=== PATIENT | male | born 1985 | race Caucasian/White ===

== ENCOUNTER 2020-10-19 17:29 | Emergency (ER) | payer MEDICAID ==
[~2020-10-19] VITALS: Ht 177.8 cm; Wt 79.5 kg
[2020-10-19 18:31] VITALS: BP 136/81
== END 2020-10-19 19:19 | disposition home or self-care (01) ==
LOC: ER 17:30
DX: R53.83 Other fatigue (principal); Z20.822 Contact with and (suspected) exposure to COVID-19; R52 Pain, unspecified
CPT/HCPCS: 87635; 99283; C9803

== ENCOUNTER 2022-04-07 14:25 | Emergency (ER) | payer MEDICAID ==
[~2022-04-07] VITALS: Ht 177.8 cm; Wt 81.8 kg
[2022-04-07 14:59] VITALS: BP 138/82
[2022-04-07] MEDS ORDERED: triamcinolone acetonide 40mg/ml inj IM ONE (15:15)
[2022-04-07] MEDS ORDERED: TRIA15CR61 TOP (15:22)
[2022-04-07] MEDS ORDERED: PRED20TA PO (15:22)
== END 2022-04-07 15:45 | disposition home or self-care (01) ==
LOC: ER 14:26
DX: L23.7 Allergic contact dermatitis due to plants, except food (principal); Z79.899 Other long term (current) drug therapy
CPT/HCPCS: 96372; 99283; J3301

== ENCOUNTER 2022-04-29 09:54 | Emergency (ER) | payer MEDICAID ==
[~2022-04-29] VITALS: Ht 177.8 cm; Wt 79.5 kg
[~2022-04-29 09:54] MED LIST: TRIA15CR61 TOP
[2022-04-29 10:33] VITALS: BP 142/98
== END 2022-04-29 12:24 | disposition home or self-care (01) ==
LOC: ER 09:55
DX: R05.9 Cough, unspecified (principal); Z20.822 Contact with and (suspected) exposure to COVID-19; F15.10 Other stimulant abuse, uncomplicated; F11.10 Opioid abuse, uncomplicated
CPT/HCPCS: 87811; 99283

== ENCOUNTER 2023-01-26 20:43 | Emergency (ER) | payer MEDICAID ==
[~2023-01-26] VITALS: Ht 177.8 cm; Wt 68.9 kg
[2023-01-26 23:03] VITALS: BP 123/70; PULSE 62; RESP 16; TEMP 97.8; O2SAT 99
== END 2023-01-26 23:04 | disposition home or self-care (01) ==
LOC: ER 20:43
DX: S93.601A Unspecified sprain of right foot, initial encounter (principal); Z72.89 Other problems related to lifestyle; X50.1XXA Overexertion from prolonged static or awkward postures, initial encounter; Y93.89 Activity, other specified; Y92.89 Other specified places as the place of occurrence of the external cause; Y99.8 Other external cause status
CPT/HCPCS: 73610; 73630; 99284; L4360

== ENCOUNTER 2025-02-03 18:16 | Emergency (ER) | payer MEDICAID ==
[~2025-02-03] VITALS: Ht 177.8 cm; Wt 65.6 kg
--- NOTE | 2025-02-03 19:10 | RADIOLOGY REPORT ---
EXAM: DI CHEST,SINGLE VIEW HISTORY: CP TECHNIQUE: 1 view of the chest COMPARISON: None FINDINGS/IMPRESSION: LUNGS: Bibasilar hazy alveolar opacity/infiltrates. MEDIASTINUM: Unremarkable. BONES: No acute osseous abnormality. OTHER: None.
--- NOTE | 2025-02-03 19:32 | Physician Documentation ---
History of Present Illness ~ Chief Complaint: Cough Stated Complaint: FLU SYMPTOMS Time Seen by MD: 19:33 Primary Medical Doctor: NONE HPI This is a 39-year-old male who presents with one-month of productive cough, patient reports bilateral rib pain worse with coughing. Mild complain of malaise and goodwin color to sputum production. No hemoptysis, night sweats or unintentional weight loss. Medication Reconciliation Allergies: Coded Allergies: No Known Allergies (Unverified , 04/07/22) Scheduled Albuterol Sulfate (Ventolin Hfa), 2 PUFFS INH Q4HPRN Azithromycin (Zithromax), 1 TAB PO DAILY Scheduled PRN Benzonatate* (Benzonatate*), 1-2 CAP PO Q6H PRN for cough Past Medical History Past Medical History: No Pertinent History Past Surgical History: no surgical history Alcohol Use: Heavy Lives with: S/O Lives In: Home Review of Systems ROS As stated above in the HPI, otherwise all systems are reviewed and negative. Physical Exam Vital Signs: Temperature: 98.9, Source: Temporal, Heart Rate: 77, Respiratory Rate: 16, BP: 125/72, Pulse Oximetry: 99, Weight: 65.600 Oxygen Flow Rate: 0 Physical Exam VITALS: Reviewed and as above. GENERAL: Alert, nontoxic appearing, no apparent distress. HEENT: RESPIRATORY: No increased work of breathing, no respiratory distress, speaking in full clear sentences CHEST: CV: BACK: GI: MUSCULOSKELETAL: SKIN: NEURO: PSYCH: Progress Results/Orders Results/Orders Completed Orders - ALCIRA ALMODOVAR Azithromycin Tablet (Zithromax Tablet) (02/03/25 19:45) Benzonatate Capsule (Tessalon Perles Cap (02/03/25 19:45) Vital Signs 02/03/25 02/03/25 18:38 20:05 Temp 98.9 98.9 Pulse 77 76 Resp 16 20 B/P (MAP) 125/72 126/70 Pulse Ox 99 99 O2 Flow Rate 0 Medical Decision Making Additional information obtaine: N/A Findings MSE performed in triage and patient returned to ED lobby by nursing staff to await available ED room. Examination history consistent with atypical versus viral pneumonia. Chest x-ray consistent with atypical pneumonia. Will provide Azithromycin and Tessalon Perles in the Emergency department for suspected PNA. No hypoxia noted. Patient is stable for outpatient management with a azith romycin, Tessalon Perles and albuterol metered-dose inhaler. Strict instructions to return if worse. Discharged from the emergency department nontoxic withotu hypoxia. Differential Dx:Considerations: Include: Allergic rhinitis, Influenza, Otitis media, Peritonsillar abscess, Pharyngitis-Diphtheria, Pharyngitis-Streptoccal, Pharyngitis-Viral, Pneumonia, Pnuemonitis, Sinusitis, URI, Other (TB) Departure Disposition: HOME / SELF CARE / HOMELESS Impression: Primary Impression: Pneumonitis Condition: Improved Discharge Instructions: Bronchitis Additional Instructions: Please obtain prescriptions and begin as directed for suspected wlking pneumonia. Return to the emergency department if symptoms worsen and or you become increasingly short of breath. Thank you for visiting [facility]. Referrals: NO PRIMARY CARE PROVIDER (PCP) Prescriptions Azithromycin (Zithromax) 250 Mg Tablet 1 TAB PO DAILY, #6 TAB azithromycin z pack as directed in packaging Prov: ALCIRA ALMODOVAR 02/03/25 Benzonatate* (Benzonatate*) 100 Mg Capsule 1-2 CAP PO Q6H PRN for cough, #30 CAP Prov: ALCIRA ALMODOVAR 02/03/25 Albuterol Sulfate (Ventolin Hfa) 90 Mcg Hfa.aer.ad 2 PUFFS INH Q4HPRN, #1 INHALER Prov: ALCIRA ALMODOVAR 02/03/25 Education Educated: Patient Educated regarding: diagnosis, treatment, prognosis, need for follow up Signature Scribe Signature: . Attestation: . JESUSITA BOOTHE Feb 03, 2025 19:31 ALCIRA ALMODOVAR Feb 03, 2025 19:47
[2025-02-03] MEDS ORDERED: ALBU18HF2 INH (19:46)
[2025-02-03] MEDS ORDERED: BENZ-38 PO (19:46)
[2025-02-03] MEDS ORDERED: AZIT-164 PO (19:47)
[2025-02-03 20:05] VITALS: BP 126/70; PULSE 76; RESP 20; TEMP 98.9; O2SAT 99
== END 2025-02-03 20:06 | disposition home or self-care (01) ==
LOC: ER 18:17
DX: J98.4 Other disorders of lung (principal); F10.90 Alcohol use, unspecified, uncomplicated; Y90.9 Presence of alcohol in blood, level not specified; Z79.899 Other long term (current) drug therapy
CPT/HCPCS: 71045; 99283